=== PATIENT | female | born 2000 | race Two or more races ===

== ENCOUNTER 2025-08-27 09:11 | Inpatient (IN) | payer MEDICAID, OTHER ==
[~2025-08-27] VITALS: Ht 157.5 cm; Wt 57.7 kg
--- NOTE | 2025-08-27 09:18 | ED.PDOC ---
History of Present Illness HPI Comments This is a 25-year-old female who comes in with chief complaint of sickle cell crisis. The patient states that she has sickle cell disease and the crisis started yesterday. The patient denies any nausea, vomiting or diarrhea. She states that the pain is throughout her entire body and is a 10/10. She does ta ke Dilaudid and Percocet but she ran out of her medications. EN route, an IV Hep-Lock was established and the patient had an Accu-Chek of 102. She denies any shortness a breath, chest pain or fever. Time Seen by MD: 09:13 Reviewed Notes: Nurses Notes, Board Lining Machine Operator Notes, Medications, Allergies (No allergies to medications) Allergies: Coded Allergies: NO KNOWN ALLERGIES (Unverified , 08/27/25) Information Source: Patient, Emergency Med Personnel Mode of Arrival: EMS Severity: Moderate Timing: Days Duration: Since onset Prehospital treatment: Accucheck (102), Convenience Store Manager, IVF Associated signs and symptoms Associated total body pain Past Medical History PAST MEDICAL HISTORY: Liver (Cirrhosis of the liver, varices, sickle cell disease) Surgical History (Other): Banding of her varices GAS ENGINE MECHANIC History: No Pertinent GAS ENGINE MECHANIC History Family History Family History: Reviewed,noncontributory to illness Social History Smoker: Non-Smoker Alcohol: Denies ETOH Use Drugs: Marijuana Lives In: Home Constitutional: denies: chills, diaphoresis, fatigue, fever, malaise, sweats, weakness, others EENTM: denies: blurred vision, double vision, ear bleeding, ear discharge, ear drainage, ear pain, ear ringing, eye pain, eye redness, hearing loss, mouth pain, mouth swelling, nasal discharge, nose bleeding, nose congestion, nose pain, photophobia, tearing, throat pain, throat swelling, voice changes, others Respiratory: denies: cough, hemoptysis, orthopnea, SOB at rest, shortness of breath, SOB with excertion, stridor, wheezing, others Cardiovascular: denies: chest pain, dizzy spells, diaphoresis, Dyspnea on exertion, edema, irregular heart beat, left arm pain, lightheadedness, palpitations, PND, syncope, others Gastrointestinal: denies: abdomen distended, abdominal pain, blood streaked bowels, constipated, diarrhea, dysphagia, difficulty swallowing, hematemesis, melena, nausea, poor appetite, poor fluid intake, rectal bleeding, rectal pain, vomiting, others Genitourinary: denies: abnormal vagina bleeding, burning, dyspareunia, dysuria, flank pain, frequency, hematuria, incontinence, pain, , vagina discha rge, urgency, others Neurological: denies: dizziness, fainting, headache, left sided numbness, left sided weakness, numbness, paresthesia, pre-existing deficit, right sided numbness, right sided weakness, seizure, speech problems, tingling, tremors, weakness, others Musculoskeletal: reports: others (Total body pain); denies: back pain, gout, joint pain, joint swelling, muscle pain, muscle stiffness, neck pain Integumetry: denies: bruises, change in color, change in hair/nails, dryness, laceration, lesions, lumps, rash, wounds, others Allergic/Immunocompromised: denies: Difficulty Healing, Frequent Infections, Hives, Itching, others Hematologic/Lymphatic: denies: anemia, blood clots, easy bleeding, easy bruising, swollen glands, others Endocrine: denies: excessive hunger, excessive sweating, excessive thirst, excessive urination, flushing, intolerance to cold, intolerance to heat, unexplained weight gain, unexplained weight loss, others Psychiatric: denies: anxiety, bipolar disorder, depression, hopeless, panic disorder, schizophrenia, sleepless, suicidal, others Physical Exam General Appearance: Moderate Distress HEENT: Pale Conjuntivae (L), Pale Conjuntivae (R), Pharynx Normal, TMs Normal Neck: Full Range of Motion, Non-Tender, Normal, Normal Inspection Respiratory: Chest Non-Tender, Lungs Clear, No Accessory Muscle Use, No Respiratory Distress, Normal Breath Sounds Cardiovascular: No Edema, No JVD, No Murmur, No Gallop, Normal Peripheral Pulses, Regular Rate/Rhythm Breast Exam: Deferred Gastrointestinal: No Organomegaly, Non Tender, No Pulsatile Mass, Normal Bowel Sounds, Soft Genitalia: Deferred Pelvic: Deferred Rectal: Deferred Extremities: No calf tenderness, Normal capillary refill, Normal inspection, Normal range of motion, Non-tender, No pedal edema Musculoskeletal : Apperance: Normal Neurologic: Alert, seed pelleter II-XII nml as Tested, Motor Weakness, Normal Affect, Normal Mood, No Sensory Deficits Cerebellar Function: Normal Reflexes: Normal Skin: Dry, Normal Color, Warm Lymphatic: No Adenopathy Was a procedure done? Was a procedure done?: No Differential Dx Considerations may include: Sickle cell crisis, generalized weakness, electrolyte imbalance X-Ray, Labs, Meds, VS Vital Signs Date Time Temp Pulse Resp B/P (MAP) Pulse Ox O2 Delivery O2 Flow Rate FiO2 08/27/25 09:36 83 96 113/71 08/27/25 09:30 98.5 83 17 113/71 (85) 96 98.5 08/27/25 09:30 83 17 96 Room Air* 0 21 08/27/25 09:17 98.8 82 18 103/73 99 98.8 Lab Test 08/27/25 09:36 Range/Units White Blood Count 5.4 4.4-10.8 10^3/uL Red Blood Count 3.49 L 4.0-5.20 10^6/uL Hemoglobin 10.9 L 12.2-16.2 g/dL Hematocrit 33.3 L 36.0-46.0 % Mean Corpuscular Volume 95.3 80.0-100.0 fL Mean Corpuscular Hemoglobin 31.2 28.0-32.0 pg Mean Corpuscular Hemoglobin Concent 32.8 32.0-36.0 g/dL Red Cell Distribution Width 15.5 H 11.8-14.3 % Platelet Count 302 140-450 10^3/uL Mean Platelet Volume 7.7 6.9-10.8 fL Neutrophils (%) (Auto) 37.1 37.0-80.0 % Lymphocytes (%) (Auto) 46.7 10.0-50.0 % Monocytes (%) (Auto) 12.8 H 0.0-12.0 % Eosinophils (%) (Auto) 2.5 0.0-7.0 % Basophils (%) (Auto) 0.9 0.0-2.0 % Neutrophils # (Auto) 2.0 1.6-8.6 10 ^3/uL Lymphocytes # (Auto) 2.5 0.4-5.4 10 ^3/uL Monocytes # (Auto) 0.7 0-1.3 10 ^3/uL Eosinophils # (Auto) 0.1 0-0.8 10 ^3/uL Basophils # (Auto) 0 0-0.2 10 ^3/uL Nucleated Red Blood Cells 0.4 % Reticulocyte Count (auto) 1.12 0.5-1.5 % Sodium Level 142 136-145 mmol/L Potassium Level 3.9 3.5-5.1 mmol/L Chloride Level 110 H 98-107 mmol/L Carbon Dioxide Level 23 20-31 mmol/L Anion Gap 9 5-15 Blood Urea Nitrogen < 5 L 9-23 mg/dL Creatinine 0.69 0.550-1.02 mg/dL Glomerular Filtration Rate Calc 122 >90 mL/min BUN/Creatinine Ratio 7.2 L 10.0-20.0 Serum Glucose 89 74-106 mg/dL Calcium Level 8.6 L 8.7-10.4 mg/dL Current Medications Medications (Trade) Dose Ordered Sig/Molly Route Start Time Stop Time Status Last Admin Hydromorphone HCl (Dilaudid Injection) 1 mg ONCE ONCE IV 08/27/25 09:15 08/27/25 09:16 DC 08/27/25 09:36 Sodium Chloride 1,000 ml @ 1,000 mls/hr Q1H ONCE IV 08/27/25 09:15 08/27/25 10:14 DC 08/27/25 09:35 Ondansetron HCl (Zofran) 4 mg ONCE ONCE IV 08/27/25 09:15 08/27/25 09:16 DC 08/27/25 09:35 IV Hep-Lock was established. The patient was given normal saline at 1 L bolus The patient was given Dilaudid 1 mg IV push for the pain The patient was given Zofran 4 mg IV push for the nausea The patient's CBC is within normal limits except for anemia with a hemoglobin of 10.9 and the reticulocyte count is within normal limits. The patient is having persistent pain The patient is being admitted with a diagnosis of sickle cell crisis Time of 1ST Reevaluation: 09:17 Reevaluation 1ST: Unchanged Patient Education/Counseling: Diagnosis, Treatment, Prognosis Family Education/Counseling: No Family Present SEPSIS Sepsis Screen Physician Orders Urinalysis (08/27/25 09:13) Heplock Iv (08/27/25 09:13) Convenience Store Manager (08/27/25 09:13) Blood Pressure (08/27/25 09:13) Pulse Oximetry (08/27/25 09:13) Test, Urine (08/27/25 09:13) Vital Signs Date Time Temp Pulse Resp B/P (MAP) Pulse Ox O2 Delivery O2 Flow Rate FiO2 08/27/25 09:36 83 96 113/71 08/27/25 09:30 98.5 83 17 113/71 (85) 96 98.5 08/27/25 09:30 83 17 96 Room Air* 0 21 08/27/25 09:17 98.8 82 18 103/73 99 98.8 Laboratory Tests Test 08/27/25 09:36 White Blood Count 5.4 10^3/uL (4.4-10.8) Medications Medications Dose Ordered Sig/Molly Route Start Time Stop Time Status Last Admin Dose Admin Hydromorphone HCl 1 mg ONCE ONCE IV 08/27/25 09:15 08/27/25 09:16 DC 08/27/25 09:36 Ondansetron HCl 4 mg ONCE ONCE IV 08/27/25 09:15 08/27/25 09:16 DC 08/27/25 09:35 Sodium Chloride 1,000 ml @ 1,000 mls/hr Q1H ONCE IV 08/27/25 09:15 08/27/25 10:14 DC 08/27/25 09:35 Departure 1 Departure Time of Disposition: 10:19 Impression: Primary Impression: Sickle cell crisis Additional Impression: Intractable pain Disposition: ADMITTED INPATIENT Admit to: Med Surg Condition: Fair Critical Care Note Critical Care Time?: No Stability Stability form required: Yes Unstable for transfer: ED Physician Assesment (Clinical assesment) Heart Score Heart Score: Heart Score Response (Comments) Value History N/A 0 EKG N/A 0 Age N/A 0 Risk Factors N/A 0 Troponin N/A 0 Total 0 NOA MCKEON MD Aug 27, 2025 09:18
[2025-08-27 09:30] VITALS: PULSE 83; RESP 17; O2SAT 96
[2025-08-27] MEDS: SODIUM CHLORIDE 0.9% 1,000 ML IV ONE (09:35)
[2025-08-27] MEDS: ONDANSETRON HCL 4 MG/2 ML VIAL IV ONE (09:35)
[2025-08-27] MEDS: HYDROmorphone HCL 2 MG/ML VL/or syr IV ONE ×2 (09:36→12:42)
[2025-08-27 09:56] LABS: Hematocrit 33.3 % (36.0-46.0); Hemoglobin 10.9 g/dL (12.2-16.2); Mean Corpuscular Hemoglobin 31.2 pg (28.0-32.0); Mean Corpuscular Volume 95.3 fL (80.0-100.0); Nucleated Red Blood Cells % 0.4 %
[2025-08-27 10:02] LABS: Potassium 3.9 mmol/L (3.5-5.1); Sodium 142 mmol/L (136-145)
[2025-08-27 10:03] LABS: Anion Gap 9 (5-15); Carbon Dioxide 23 mmol/L (20-31)
[2025-08-27 10:08] LABS: Glucose 89 mg/dL (74-106)
[2025-08-27 10:10] LABS: BUN/Creatinine Ratio 7.2 (10.0-20.0); Blood Urea Nitrogen < 5 mg/dL (9-23); Calcium 8.6 mg/dL (8.7-10.4); Chloride 110 mmol/L (98-107)
[2025-08-27] MEDS ORDERED: NITROGLYCERIN 0.4 MG SL TAB SL PRN (13:30)
[2025-08-27] MEDS ORDERED: MORPHINE SULFATE INJ 2 MG/ml SYRG IV PRN (13:30)
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
[2025-08-27 14:10] LABS: Total Iron Binding Capacity 323.0 ug/dL (250-425)
[2025-08-27 14:11] LABS: Iron 30.0 ug/dL (50-170)
[2025-08-27] MEDS: SODIUM CHLORIDE 0.9% 1,000 ML IV SCH (14:20)
[2025-08-27 14:27] LABS: INR 1.08 (0.9-1.15); Partial Thromboplastin Time 25.9 SEC (24.5-34.5); Prothrombin Time 11.4 sec (9.3-11.8)
[2025-08-27 14:42] LABS: COVID19 ANTIGEN SOFIA FIA NEGATIVE (NEGATIVE)
[2025-08-27 16:52] VITALS: BP 114/79; PULSE 69; RESP 16; TEMP 98.4; O2SAT 99
[2025-08-27 17:39] LABS: Urine Protein, UAD Negative (Negative)
[2025-08-27] MEDS ORDERED: PERCOT PO (17:40)
[2025-08-27] MEDS ORDERED: HYDR8TAB46 PO (17:42)
[2025-08-27] MEDS ORDERED: APIX5TAB PO (17:42)
[2025-08-27 17:45] LABS: Opiate Scree,Urine Neg (NEGATIVE)
[2025-08-27 17:50] LABS: Amphetamine Screen, Urine Neg (NEGATIVE); Barbiturate Scree,Urine Neg (NEGATIVE); Benzodiazephine Screen, Urine Neg (NEGATIVE); Cannabinoid Screen, Urine Pos (NEGATIVE); Cocaine Screen, Urine Neg (NEGATIVE); Phencyclidine Screen, Urine Neg (NEGATIVE)
[2025-08-27] MEDS: HYDROmorphone HCL 2 MG/ML VL/or syr IV PRN (18:19)
[2025-08-27] MEDS: APIXABAN 5 MG TAB PO SCH (23:36)
[2025-08-27] MEDS: FAMOTIDINE 20 MG TAB PO SCH (23:36)
[2025-08-28 08:30] VITALS: BP 101/66; PULSE 65; RESP 16; TEMP 98.4; O2SAT 95
[2025-08-28] MEDS: IRON SUCROSE COMPLEX 110 ML IV SCH (12:05)
[2025-08-28 13:00] VITALS: BP 115/76; PULSE 66; RESP 16; TEMP 98.5; O2SAT 99
[2025-08-28] MEDS: SODIUM CHLORIDE 0.9% 1,000 ML IV SCH (13:38)
[2025-08-28] MEDS: LACTULOSE 20Gm/30ML SOLN PO SCH (13:39)
--- NOTE | 2025-08-28 14:11 | DVH ---
EXAM: XY CHEST XRAY 1 VIEW HISTORY: sickle cell crisis COMPARISON: For reasons unknown, CT scan of the chest dated 02/19/2025 was not made available on the PACS system for viewing. TECHNIQUE: Frontal and lateral views of the chest were performed. FINDINGS: No pneumothorax or consolidative infiltrates. There is mild interstitial prominence centrally. The he art is borderline enlarged. No fractures are identified about the bony thorax. IMPRESSION: Mild interstitial prominence may be due to reactive airways disease or mild CHF. Recommend comparison with CT scan of the chest dated 02/19/2025.
--- NOTE | 2025-08-28 16:02 | DVHPN2 ---
Reviewed: H&P Changes from previous H/P or p: No Changes General: Per HPI Eyes: No Pain, No Vision change, No Conjunctivae inflammation, No Eyelid inflammation, No Other, No Redness ENT: No Ear pain, No Ear discharge, No Nose pain, No Nose discharge, No Nose congestion, No Mouth pain, No Mouth swelling, No Throat pain, No Throat swelling, No Other Cardiovascular: Chest Pain Respiratory: Shortness of breath Gastrointestinal: No Nausea, No Vomiting, No Abdominal Pain, No Diarrhea, No Constipation, No Melena, No Hematochezia, No Other Genitourinary: No Dysuria, No Frequency, No Incontinence, No Hematuria, No Retention, No Other Musculoskeletal: back pain, hand pain, leg pain, foot pain Skin: No Rash, No Lesions, No Jaundice, No Bruising, No Other Objective Vitals Vital Signs Date Time Temp Pulse Resp B/P (MAP) Pulse Ox O2 Delivery O2 Flow Rate FiO2 08/28/25 14:57 66 16 115/76 08/28/25 13:00 98.5 99 98.5 08/27/25 10:55 Room Air 08/27/25 09:30 0 21 Intake/Output Intake and Output 08/28/25 07:00 Intake Total 1125 ml Output Total 1 ml Balance 1124 ml Intake IV Total 1125 ml Output Urine Total 1 ml Exam General Appearance: Cooperative. Well developed. Well nourished. NAD Head Exam: Normal inspection Neck Exam: Normal inspection. Non-tender. Normal alignment Pulmonary/Respiratory: Chest non-tender. Clear bilateral breath sounds Cardiovascular/Chest: Regular rate and rhythm. No murmurs. No JVD. Peripheral Pulses: 2+ Radial (R). 2+ Radial (L). 2+ Pedal (R). 2+ Pedal (L) Abdominal Exam: Normal bowel sounds. Soft. Nontender. No hepatospenomegaly. No masses Ankle Exam: Negative ankle edema Lower extremities: Negative lower extremity edema Neuro/Mental Status: A&O x4. Coherent Thoughts/Psych: Normal thought pattern. Appropriate mood and affect. Good judgement and insight Appearance: In no acute distress Skin Exam: Normal inspection. Normal color. Warm. Dry Medications Current Medications Medications Dose Ordered Sig/Molly Route Start Time Stop Time Status Last Admin Dose Admin Hydromorphone HCl 0.5 mg Q4HP PRN IV 08/27/25 13:30 08/28/25 14:57 0.5 MG Nitroglycerin 0.4 mg Q5MINP PRN SL 08/27/25 13:30 Hydromorphone HCl 2 mg Q6HR PO 08/27/25 18:00 08/28/25 12:05 2 MG Famotidine 20 mg Q12HR PO 08/27/25 22:00 08/28/25 09:27 20 MG Apixaban 5 mg BID PO 08/27/25 22:00 08/28/25 09:42 5 MG Hydroxyurea 500 mg DAILY PO 08/28/25 10:00 08/28/25 12:05 500 MG Iron Sucrose 110 ml @ 110 mls/hr DAILY@1200 IV 08/28/25 12:00 09/01/25 12:59 08/28/25 12:05 110 MLS/HR Sodium Chloride 1,000 ml @ 75 mls/hr [id number] IV 08/28/25 13:00 08/28/25 13:38 75 MLS/HR Lactulose 10 ml BID PO 08/28/25 13:14 08/28/25 13:39 10 ML Laboratory Results Laboratory Tests 08/27/25 09:36 Urinalysis Test 08/27/25 17:23 Urine Color Light-yellow (Yellow) Urine Clarity Clear (Clear) Urine pH 6.0 (5.0-9.0) Urine Specific [place] 1.019 (1.001-1.035) Urine Protein Negative (Negative) Urine Ketones Negative (Negative) Urine Blood Negative /uL (Negative) Urine Nitrite Negative (Negative) Urine Bilirubin Negative (Negative) Urine Urobilinogen Normal mg/dL (Negative) Urine Leukocyte Esterase Negative /uL (Negative) Urine RBC 1 /hpf (0 - 4) Urine Microscopic WBC < 1 /HPF (0-5) Urine Squamous Epithelial Cells Few /hpf (<5) Urine Bacteria None seen /hpf (None Seen) Urine Mucus Few (None Seen) Urine Glucose Normal mg/dL (Normal) Urine Test Negative (Negative) Labs and/or images reviewed: Labs reviewed by me, Image(s) reviewed by me Assessment/Plan Assessment/Plan 25-year-old female with past medical history of sickle cell crisis, variceal bleeding, splenectomy who came to the hospital with a chief complaint of generalized body ache, mainly severe in bilateral lower extremity, usually similar kind of aching pain started when she has sickle cell crisis. Patient also feeling severely dehydrated, mild chest discomfort with on and off shortness of breath. Denying any other symptoms including fever, chills, dizziness, motor or sensory deficits, bowel or bladder irregularity. Last menstrual period in early July. Usually regular. No signs of any active bleeding. 08/28: Patient is homeless and sometimes this is their sister. Currently she is living with her sister. 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 She does not take any medications for her sickle cell. dx: Sickle cell crisis Rule out acute chest syndrome Hypochromic normocytic anemia Iron-deficiency anemia Dehydrated Marijuana user Plan IV fluids Hydroxyurea 500 mg once daily Patient to follow up with PCP to set up elementary school director IV iron Prn pain control analgesia. Tele Full code Plan discussed with: Patient My Orders Orders - PAUL QUINTANA MD Procedure Category Date Status Time Sodium Chloride 0.9% PHA 08/28/25 In Process 13:00 Lactulose Oral PHA 08/28/25 In Process 13:14 Date of Service: Aug 28, 2025 Billing Provider: PAUL QUINTANA MD Common Visit Codes: [id number] INP/OBS CARE(HIGH) PAUL QUINTANA MD Aug 28, 2025 16:02
[2025-08-28 17:00] VITALS: BP 134/88; PULSE 69; RESP 16; TEMP 97.3; O2SAT 97
[2025-08-28 21:00] VITALS: BP 136/91; PULSE 66; RESP 16; TEMP 98.1; O2SAT 100
[2025-08-28 22:00] VITALS: BP 136/91; PULSE 66; RESP 16; TEMP 98.1; O2SAT 100
[2025-08-28 22:35] VITALS: BP 131/88; PULSE 65; RESP 18; TEMP 98.6; O2SAT 98
[2025-08-29 01:00] VITALS: BP 125/91; PULSE 71; RESP 18; TEMP 98.3; O2SAT 97
[2025-08-29] MEDS ORDERED: KETOROLAC TROMETH 30 MG/ML 1ML VIAL IV ONE (03:00)
[2025-08-29] MEDS ORDERED: CALCIUM CARB 500 MG CHEW TAB PO PRN (03:00)
[2025-08-29 05:00] VITALS: BP 142/88; PULSE 67; RESP 16; TEMP 97.8; O2SAT 100
[2025-08-29 05:53] LABS: Hematocrit 33.4 % (36.0-46.0); Hemoglobin 11.1 g/dL (12.2-16.2); Mean Corpuscular Hemoglobin 31.3 pg (28.0-32.0); Mean Corpuscular Volume 94.1 fL (80.0-100.0); Nucleated Red Blood Cells % 0.6 %
[2025-08-29 05:56] LABS: Alanine Aminotransferase 36 U/L (7-40); Albumin 3.6 g/dL (3.2-4.8); Alkaline Phosphatase 80 U/L (46-116); Anion Gap 10 (5-15); Calcium 8.8 mg/dL (8.7-10.4); Carbon Dioxide 23 mmol/L (20-31); Chloride 107 mmol/L (98-107); Glucose 78 mg/dL (74-106); Potassium 3.7 mmol/L (3.5-5.1); Sodium 140 mmol/L (136-145); Total Protein 6.7 g/dL (5.7-8.2)
[2025-08-29 06:00] LABS: BUN/Creatinine Ratio 7.4 (10.0-20.0); Blood Urea Nitrogen < 5 mg/dL (9-23)
[2025-08-29 06:09] LABS: Bilirubin, Total 0.6 mg/dL (0.2-1.0)
[2025-08-29 08:00] VITALS: PULSE 62
[2025-08-29 09:00] VITALS: BP 95/53; PULSE 64; RESP 17; TEMP 98.2; O2SAT 97
--- NOTE | 2025-08-29 14:51 | DVHDS2 ---
Discharge Summary Date of Admission Aug 27, 2025 at 13:19 Date of Discharge: Aug 29, 2025 Labs/Diagnostic Data: Laboratory Results Test 08/29/25 04:50 08/28/25 04:19 08/27/25 17:23 08/27/25 13:53 White Blood Count 6.4 10^3/uL (4.4-10.8) Red Blood Count 3.54 10^6/uL (4.0-5.20) Hemoglobin 11.1 g/dL (12.2-16.2) Hematocrit 33.4 % (36.0-46.0) Mean Corpuscular Volume 94.1 fL (80.0-100.0) Mean Corpuscular Hemoglobin 31.3 pg (28.0-32.0) Mean Corpuscular Hemoglobin Concent 33.2 g/dL (32.0-36.0) Red Cell Distribution Width 15.4 % (11.8-14.3) Platelet Count 323 10^3/uL (140-450) Mean Platelet Volume 7.7 fL (6.9-10.8) Neutrophils (%) (Auto) 32.3 % (37.0-80.0) Lymphocytes (%) (Auto) 50.4 % (10.0-50.0) Monocytes (%) (Auto) 13.1 % (0.0-12.0) Eosinophils (%) (Auto) 3.8 % (0.0-7.0) Basophils (%) (Auto) 0.4 % (0.0-2.0) Neutrophils # (Auto) 2.1 10 ^3/uL (1.6-8.6) Lymphocytes # (Auto) 3.2 10 ^3/uL (0.4-5.4) Monocytes # (Auto) 0.8 10 ^3/uL (0-1.3) Eosinophils # (Auto) 0.2 10 ^3/uL (0-0.8) Basophils # (Auto) 0 10 ^3/uL (0-0.2) Nucleated Red Blood Cells 0.6 % Sodium Level 140 mmol/L (136-145) Potassium Level 3.7 mmol/L (3.5-5.1) Chloride Level 107 mmol/L (98-107) Carbon Dioxide Level 23 mmol/L (20-31) Anion Gap 10 (5-15) Blood Urea Nitrogen < 5 mg/dL (9-23) Creatinine 0.68 mg/dL (0.550-1.02) Glomerular Filtration Rate Calc 122 mL/min (>90) BUN/Creatinine Ratio 7.4 (10.0-20.0) Serum Glucose 78 mg/dL (74-106) Calcium Level 8.8 mg/dL (8.7-10.4) Total Bilirubin 0.6 mg/dL (0.2-1.0) Aspartate Amino Transferase (AST) 38 U/L (13-40) Alanine Aminotransferase (ALT) 36 U/L (7-40) Alkaline Phosphatase 80 U/L (46-116) Total Protein 6.7 g/dL (5.7-8.2) Albumin 3.6 g/dL (3.2-4.8) Influenza Type A Antigen Negative (Negative) Influenza Type B Antigen Negative (Negative) Urine Color Light-yellow (Yellow) Urine Clarity Clear (Clear) Urine pH 6.0 (5.0-9.0) Urine Specific [place] 1.019 (1.001-1.035) Urine Protein Negative (Negative) Urine Ketones Negative (Negative) Urine Blood Negative /uL (Negative) Urine Nitrite Negative (Negative) Urine Bilirubin Negative (Negative) Urine Urobilinogen Normal mg/dL (Negative) Urine Leukocyte Esterase Negative /uL (Negative) Urine RBC 1 /hpf (0 - 4) Urine Microscopic WBC < 1 /HPF (0-5) Urine Squamous Epithelial Cells Few /hpf (<5) Urine Bacteria None seen /hpf (None Seen) Urine Mucus Few (None Seen) Urine Glucose Normal mg/dL (Normal) Urine Test Negative (Negative) Urine Opiates Screen Neg (NEGATIVE) Urine Fentanyl Screen Neg (NEGATIVE) Urine Barbiturates Screen Neg (NEGATIVE) Urine Phencyclidine Screen Neg (NEGATIVE) Urine Amphetamines Screen Neg (NEGATIVE) Urine Benzodiazepines Screen Neg (NEGATIVE) Urine Cocaine Screen Neg (NEGATIVE) Urine Cannabinoids Screen Pos (NEGATIVE) Prothrombin Time 11.4 sec (9.3-11.8) Prothrombin Time INR 1.08 (0.9-1.15) Activated Partial Thromboplast Time 25.9 SEC (24.5-34.5) Test 08/27/25 13:50 08/27/25 09:36 SARS-CoV-2 Antigen (Rapid) Negative (NEGATIVE) Reticulocyte Count (auto) 1.12 % (0.5-1.5) Iron Level 30 ug/dL (50-170) Total Iron Binding Capacity 323 ug/dL (250-425) Percent Iron Saturation 9.3 % (15-50) Ferritin 9.3 ng/mL (10-291) Lactate Dehydrogenase 239 U/L (120-246) B-Type Natriuretic Peptide 27.02 pg/mL (0-100) Other Laboratory Tests 08/29/25 04:50 Brief Hx & Hospital Course: 25-year-old female with past medical history of sickle cell crisis, variceal bleeding, splenectomy who came to the hospital with a chief complaint of generalized body ache, mainly severe in bilateral lower extremity, usually similar kind of aching pain started when she has sickle cell crisis. Patient also feeling severely dehydrated, mild chest discomfort with on and off shortness of breath. Denying any other symptoms including fever, chills, dizziness, motor or sensory deficits, bowel or bladder irregularity. Last menstrual period in early July. Usually regular. No signs of any active bleeding. 08/28: Patient is homeless and sometimes this is their sister. Currently she is living with her sister. She has no PCP and no assessment analyst. She does not take any medications for her sickle cell. 08/29: theres is no evidence of active sickle crisis. LDH normal, no Tbili. MCV normal range 90s. possible malingering and or pain seeking. stable for discharge. patient homeless. I will not prescribe hydroxyurea as we have no evidence of SCA and also high chance of failure to follow-up. patient needs to follow-up with PCP to confirm diagnosis. dx: Sickle cell crisis, unable to rule out. Ruled out acute chest syndrome normocytic anemia Iron-deficiency anemia, likely due to menorrhagia Dehydrated Marijuana user plan: - follow-up with PCP -[facility] documents/resources Condition at Discharge: Fair Final Diagnosis/Problems List Sickle cell crisis, unable to rule out. Ruled out acute chest syndrome normocytic anemia Iron-deficiency anemia, likely due to menorrhagia Dehydrated Marijuana user Discharge Disposition: Home Discharge Instruct/Medications Scheduled Apixaban Base (Eliquis), 10 MG PO DAILY, (Reported) Scheduled PRN Hydromorphone Hcl (Dilaudid), 20 MG PO Q3HP PRN for PAIN SCALE 7 THRU 10, (Reported) Oxycodone W/ Acetaminophen (Percocet 5/325MG), 2 TAB PO Q3HP PRN for PAIN SCALE 1 THRU 6, (Reported) Discharge Statement: "Patient was advised to return to the ER or call 911 if any headaches, dizziness, shortness of breath, chest pain, abdominal pain, bleeding, fevers, or worsening of medical condition. Patient was counseled about treatment plan, medications, possible side effects, patientverbalized understanding. All questions were answered to the best of my ability. This discharge took greater then 30 minutes in planning, reviewing documentation, counseling the patient, and discussing with other team members." ASSESSMENT ASSESSMENT Assessment Date of Service: Aug 29, 2025 Billing Provider: PAUL QUINTANA MD Common Visit Codes: [id number]/[id number] DISCH DAY >30min PAUL QUINTANA MD Aug 29, 2025 14:51
[2025-08-29 14:56] VITALS: BP 118/76; PULSE 70; RESP 18
== END 2025-08-29 16:50 | disposition home or self-care (01) | DRG 662 ==
LOC: ER 09:11 → EDBD 09:11 → OVERFLOW 13:19 → TELE-WESTW 08-28 22:35
PROVIDERS: ADMIT Student in an Organized Health Care Education/Training Program; ATTEND Student in an Organized Health Care Education/Training Program
DX: D57.00 Hb-SS disease with crisis, unspecified (principal); K74.60 Unspecified cirrhosis of liver; Z59.00 Homelessness unspecified; N92.0 Excessive and frequent menstruation with regular cycle; E86.0 Dehydration; D50.9 Iron deficiency anemia, unspecified; Z90.81 Acquired absence of spleen; Z79.899 Other long term (current) drug therapy
CPT/HCPCS: 36415; 71045; 80048; 80053; 80307; 81001; 81025; 82728; 83540; 83550; 83615; 83880; 85025; 85045; 85610; 85730; 87081; 87426; 87804; 96361; 96374; 96375; G0378; J1756; J2405